=== PATIENT | female | born 1940 | race Caucasian/White ===

== ENCOUNTER → 2017-10-01 11:14 | Outpatient (CLI) | payer OTHER, SELFPAY ==
--- NOTE | 2017-10-01 | DI.MG.S_ITS ---
BILATERAL DIGITAL SCREENING MAMMOGRAM 3D/2D WITH CAD: 10/01/2017 CLINICAL: Routine screening. Family history of breast cancer. Comparison is made to exams dated: 08/14/2016 mammogram, 07/06/2015 mammogram, and 04/26/2014 mammogram - [facility]. There are scattered fibroglandular elements in both breasts. Current study was also evaluated with a Computer Aided Detection (CAD) system. There are benign vascular calcifications in both breasts. No significant masses, calcifications, or other findings are seen in either breast. There has been no significant interval change. IMPRESSION: BENIGN There is no mammographic evidence of malignancy. A 1 year screening mammogram is recommended. This exam was interpreted at Station ID: [id number]. NOTE: For mammograms, a report in lay terms will be sent to the patient. Approximately 15% of breast malignancies will not be visualized mammographically. In the management of a palpable breast mass, a negative mammogram must not discourage biopsy of a clinically suspicious lesion. Electronically Signed By: Cuong man/zach:10/01/2017 12:02:10 letter sent: Normal Exam ACR BI-RADS Category 2: Benign Finding(s) 3342F
== END ==
PROVIDERS: Visit Provider Internal Medicine
DX: Z12.31 Encounter for screening mammogram for malignant neoplasm of breast (principal); Z80.3 Family history of malignant neoplasm of breast
CPT/HCPCS: 77063; 77067

== ENCOUNTER → 2018-04-24 11:54 | Outpatient (CLI) | payer OTHER, SELFPAY ==
[2018-04-24 12:33] LABS: Blood Urea Nitrogen 14 mg/dL (7-17); Calcium 9.6 mg/dL (8.4-10.2); Carbon Dioxide 28 mmol/L (22-32); Chloride 101 mmol/L (98-107); Estimated Glomerular Filt Rate > 60.0 mL/min (>60); Glucose 75 mg/dL (80-110); HEMOLYSIS < 15 (0-50); Potassium 4.8 mmol/L (3.4-5.1); Sodium 139 mmol/L (137-145)
[2018-04-24 14:45] LABS: Free T4, Direct Thyroxine 0.99 ng/dL (0.78-2.19)
[2018-04-24 14:58] LABS: Thyroid Stimulating Hormone 3.63 uIU/mL (0.47-4.68)
== END ==
PROVIDERS: PCP Internal Medicine; Visit Provider Internal Medicine
DX: E04.1 Nontoxic single thyroid nodule (principal); I49.9 Cardiac arrhythmia, unspecified
CPT/HCPCS: 36415; 80048; 84439; 84443

== ENCOUNTER → 2018-10-31 10:43 | Outpatient (CLI) | payer OTHER, SELFPAY ==
--- NOTE | 2018-10-31 | DI.MG.S_ITS ---
BILATERAL DIGITAL SCREENING MAMMOGRAM 3D/2D WITH CAD: 10/31/2018 CLINICAL: Routine screening. Family history of breast cancer. Comparison is made to exams dated: 10/01/2017 mammogram, 08/14/2016 mammogram, and 07/06/2015 mammogram - [facility]. There are scattered fibroglandular elements in both breasts. Current study was also evaluated with a Computer Aided Detection (CAD) system. There is an irregular asymmetry in the left breast middle depth medial region seen on the craniocaudal view only. No other significant masses, calcifications, or other findings are seen in either breast. IMPRESSION: INCOMPLETE: NEEDS ADDITIONAL IMAGING EVALUATION The irregular asymmetry in the left breast is indeterminate. Additional views with possible ultrasound are recommended. This exam was interpreted at Station ID: [id number]. NOTE: For mammograms, a report in lay terms will be sent to the patient. Approximately 15% of breast malignancies will not be visualized mammographically. In the management of a palpable breast mass, a negative mammogram must not discourage biopsy of a clinically suspicious lesion. Electronically Signed By: Kimberly fitzgerald/zach:11/02/2018 09:50:22 letter sent: Additional Imaging Needed ACR BI-RADS Category 0: Incomplete 3340F
== END ==
PROVIDERS: PCP Internal Medicine; Visit Provider Internal Medicine
DX: Z12.31 Encounter for screening mammogram for malignant neoplasm of breast (principal); Z80.3 Family history of malignant neoplasm of breast
CPT/HCPCS: 77063; 77067

== ENCOUNTER → 2018-11-20 08:44 | Outpatient (CLI) | payer OTHER, SELFPAY ==
--- NOTE | 2018-11-20 08:45 | DI.MG.S_ITS ---
UNILATERAL LEFT DIGITAL DIAGNOSTIC MAMMOGRAM 3D/2D WITH ADDITIONAL VIEWS: 11/20/2018 CLINICAL: Additional evaluation requested from prior study. Comparison is made to exams dated: 10/31/2018 mammogram and 10/01/2017 mammogram - [facility]. There are scattered fibroglandular elements in left breast. Previously noted irregular asymmetry in the left breast middle depth medial region seen on the craniocaudal view only on comparison screening mammogram of 10/31/18 persists on additional views. IMPRESSION: INCOMPLETE: NEEDS ADDITIONAL IMAGING EVALUATION Previously noted irregular asymmetry in the left breast middle depth medial region seen on the craniocaudal view only on comparison screening mammogram of 10/31/18 persists on additional views. A targeted ultrasound is recommended and will be performed immediately following this exam. This exam was interpreted at Station ID: [id number]. NOTE: For mammograms, a report in lay terms will be sent to the patient. Approximately 15% of breast malignancies will not be visualized mammographically. In the management of a palpable breast mass, a negative mammogram must not discourage biopsy of a clinically suspicious lesion. Electronically Signed By: Cuong Martin M.D. ecl/:11/20/2018 12:56:22 ACR BI-RADS Category 0: Incomplete 3340F
--- NOTE | 2018-11-20 08:45 | DI.US.S_ITS ---
LIMITED ULTRASOUND OF LEFT BREAST: 11/20/2018 CLINICAL: Patient returns today to evaluate an asymmetry in the left breast. Comparison is made to exams dated: 11/20/2018 mammogram, 10/31/2018 mammogram, 10/01/2017 mammogram, 08/14/2016 mammogram, 07/06/2015 mammogram, and 04/26/2014 mammogram - [facility]. Color flow and real-time ultrasound of the left breast inner aspect were performed. Mane scale images of the real-time examination were reviewed. There is a punctate calcification in the left breast at 9:00 position 5 cm from the nipple. There is a 0.4 x 0.3 cm hypoechoic area posterior to the calcification favors represent shadowing artifact rather than a hypoechoic lesion. Doppler imaging demonstrates twinkle artifact consistent with a calcification, with no suspicious vascularity identified. No other masses or abnormalities are identified in the imaged areas of concern. IMPRESSION: PROBABLY BENIGN Punctate calcification in the left breast at 9:00 position 5 cm from the nipple with 0.4 x 0.3 cm hypoechoic area posterior to the calcification favored to represent shadowing artifact rather than a hypoechoic lesion. No other masses or abnormalities are identified in the imaged areas of concern. A follow-up mammogram with possible ultrasound in 6 months is recommended to demonstrate stability. The patient is advised to monitor her breasts and to return sooner for re-evaluation should she feel anything grow or change. This exam was interpreted at Station ID: [id number]. Electronically Signed By: Cuong Martin M.D. ecl/:11/20/2018 12:59:13 letter sent: Followup Recommended Ultrasound BI-RADS: 3 Probably benign
== END ==
PROVIDERS: PCP Internal Medicine; Visit Provider Internal Medicine
DX: R92.8 Other abnormal and inconclusive findings on diagnostic imaging of breast (principal); R92.1 Mammographic calcification found on diagnostic imaging of breast
CPT/HCPCS: 76642; 77065; G0279

== ENCOUNTER 2019-01-28 12:26 | Day surgery (SDC) | payer OTHER, SELFPAY ==
[2019-01-28 12:38] VITALS: BP 136/87; PULSE 110; RESP 16; TEMP 36.2; O2SAT 100; BMI 25.2
[2019-01-28] MEDS: SODIUM CHLORIDE 0.9% 1,000 ML 21 ML IV (13:03)
--- NOTE | 2019-01-28 13:28 | PM.HP.1 ---
History of Present Illness History of Present Illness Date Patient Seen: 01/28/19 Time Patient Seen: 13:28 Chief complaint: [id number] Narrative: Patient presents for colorectal screening. There previous colonoscopy 5 years ago significant for an adenomatous polyp.. No personal history of colon cancer her father developed colon cancer at the age of 55. On further history denies any recent gastrointestinal symptoms. No nausea, vomiting, abdominal pain, loss of appetite, unexplained weight loss, change in bowel habits, diarrhea, constipation, melena, hematochezia, or bright red blood per rectum. Patient History Medical History Cardiac dysrhythmia, unspecified (Chronic) Chicken pox (Resolved 1945) Family hx of colon cancer (Chronic 08/21/11) Fractures (Resolved 1994) H/O adenomatous polyp of colon (Chronic) Hyperlipidemia, unspecified (Chronic) Measles (Resolved 1942) Menopause (Chronic) Mitral valve prolapse (Chronic) Mumps (Resolved 1952) Osteoporosis, unspecified (Chronic) Rosacea (Chronic) Rubella (Resolved 1964) Sleep disturbance, unspecified (Chronic) Thyroid nodule (Chronic) Surgical History Anesthesia (Resolved) Status post colonoscopy (Resolved) Family & Social History Family History Father Colorectal cancer Pneumonia Mother Diabetes mellitus Hyperlipidemia Hypertension Brother Hypertension Social History: household members spouse Tobacco & Substance use: Smoking Status Never smoker Meds Home Medications and Allergies Home Medications Medication Instructions Recorded Confirmed Type CHOLECALCIFEROL (VITAMIN D) 2,000 iu PO Q DAY #0 06/14/11 01/04/19 History ASCORBIC ACID (VITAMIN C) 1,000 mg PO QDAY #0 07/12/11 01/28/19 History ASPIRIN (Aspirin EC) 81 mg PO QDAY #0 07/12/11 01/28/19 History [CALCIUM] 1,000 mg PO QDAY #0 07/12/11 01/28/19 History Allergies Allergy/AdvReac Type Severity Reaction Status Date / Time Penicillins [PENICILLINS] Allergy Unknown Verified 01/04/19 16:21 Review of Systems Review of Systems Narrative: A complete review of systems is negative except as noted in the HPI Exam Vital Signs (past 8 hours): - 01/28/19 12:38 Temperature 97.1 F L Pulse Rate 110 H Respiratory Rate 16 Blood Pressure 136/87 Pulse Oximetry 100 Oxygen Delivery Method Room Air Narrative Exam Narrative: General-no acute distress, well nourished HEENT-moist mucous membranes, no scleral icterus Neck-supple, no lymphadenopathy Chest- non labored respirations, clear to auscultation bilaterally Cardiac-regular rate no peripheral edema Abdomen-soft, nontender, non distended Extremities-warm, well perfused Neurological-alert and oriented, no focal deficits Assessment & Plan Assessment & Plan narrative: The patient requires colorectal screening and colonoscopy is recommended. Technical details were discussed. Risks, benefits, alternatives explained. Risks including but not limited to myocardial infarction, aspiration, bleeding, pain, missed lesion, incomplete examination, need for further radiographic studies, colonic perforation, and need for major abdominal surgery were discussed. All questions were answered to their satisfaction, and they are in agreement with this plan.
--- NOTE | 2019-01-28 14:07 | PM.OP.ENDO ---
Operative Date/Time/Diagnoses Date of procedure: 01/28/19 Time of procedure: 14:07 Pre-op diagnosis: Family history of colon cancer, prior adenomatous polyp Post-op diagnosis: same Procedure & Clinicians Study performed: Colonoscopy Same procedure as scheduled: Yes Indications: 78-year-old female last colonoscopy 5 years ago demonstrated a adenomatous polyps and has a first-degree relative with colon cancer presents for routine screening. Surgeon: Pancho Hoyos Procedure Notes SCOAP/Timeout: Performed Procedure in detail: Patient placed in left lateral decubitus position. Time out was performed. Procedural sedation was administered with Versed and Fentanyl. A rectal exam demonstrated no external hemorrhoids no internal masses. Colonoscopy scope was placed into the rectum and advanced through the colon to the cecum. The ileocecal valve was identified. The scope was then slowly withdrawn examining colon thoroughly in all directions. The colonoscopy was notable for the following 1. Salcedo diverticulosis 2. No masses polyps 3. Quality of prep fair Scope withdrawal time: 6 Sedation minutes: 30 Findings: diverticulosis Specimen(s): none sent Complications: none Impression: Diverticulosis Post-procedure Recommendations: Colonscopy in 5 years Disposition: same day surgery
[2019-01-28] MEDS: MIDAZOLAM 5 MG/5 ML VIAL IV (14:09)
[2019-01-28] MEDS: fentaNYL 250 MCG/5 ML INJ IV (14:10)
[2019-01-28 14:11] VITALS: BP 113/62; PULSE 82; RESP 14; TEMP 36.3; O2SAT 97
[2019-01-28 14:17] VITALS: BP 100/59; PULSE 86; RESP 16; O2SAT 97
[2019-01-28 14:21] VITALS: BP 111/68; PULSE 80; RESP 14; O2SAT 96
[2019-01-28 14:27] VITALS: BP 111/68; PULSE 80; RESP 16; TEMP 36.2; O2SAT 98
[2019-01-28 14:48] VITALS: BP 118/85; PULSE 82; RESP 12; TEMP 36; O2SAT 100
== END 2019-01-28 15:26 | disposition home or self-care (01) ==
PROVIDERS: PCP Internal Medicine; Visit Provider Surgery
PROC: 0DJD8ZZ Inspection of Lower Intestinal Tract, Via Natural or Artificial Opening Endoscopic (ICD-10-PCS; CPT 45378; principal; 2019-01-28 13:45)
DX: Z12.11 Encounter for screening for malignant neoplasm of colon (principal); Z86.010 Personal history of colon polyps; Z80.0 Family history of malignant neoplasm of digestive organs; K57.30 Diverticulosis of large intestine without perforation or abscess without bleeding
CPT/HCPCS: G0105; 99152; 99153; J2250; J3010

== ENCOUNTER → 2019-06-07 11:06 | Outpatient (CLI) | payer MEDICARE, SELFPAY ==
--- NOTE | 2019-06-07 11:13 | DI.MG.S_ITS ---
UNILATERAL LEFT DIGITAL DIAGNOSTIC MAMMOGRAM 3D/2D SHORT-TERM FOLLOW-UP: 06/07/2019 CLINICAL: Patient returns for a 6 month follow up of the left breast. Comparison is made to exams dated: 11/20/2018 mammogram, 10/31/2018 mammogram, and 10/01/2017 mammogram - [facility]. There are scattered fibroglandular elements in left breast. Previously described irregular asymmetry in the left breast middle depth medial region seen on the craniocaudal view only continues to appear much less prominent and decreased in size. No other significant masses or calcifications are seen in the breast. IMPRESSION: INCOMPLETE: NEEDS ADDITIONAL IMAGING EVALUATION The irregular asymmetry in the left breast is much less conspicuous, but remains indeterminate. An ultrasound is recommended. This exam was interpreted at Station ID: [id number]. NOTE: For mammograms, a report in lay terms will be sent to the patient. Approximately 15% of breast malignancies will not be visualized mammographically. In the management of a palpable breast mass, a negative mammogram must not discourage biopsy of a clinically suspicious lesion. Electronically Signed By: Talib Lopez M.D. aty/:06/07/2019 13:43:10 ACR BI-RADS Category 0: Incomplete 3340F
--- NOTE | 2019-06-07 11:13 | DI.US.S_ITS ---
ULTRASOUND OF LEFT BREAST: 06/07/2019 CLINICAL: 6 month follow-up calc shadow vs shadowing mass. Comparison is made to exams dated: 06/07/2019 mammogram, 11/20/2018 ultrasound, 11/20/2018 mammogram, 10/31/2018 mammogram, and 10/01/2017 mammogram - [facility]. Color flow and real-time ultrasound of the left breast were performed. Mane scale images of the real-time examination were reviewed. Redemonstration of a focus of coarse calcifications in the left breast 9:00, 5cm from the nipple that again likely correlates with dystrophic calcifications seen on comparison mammogram. No solid or vascular component. Twinkle artifact as before. No new sonographic abnormalities. IMPRESSION: PROBABLY BENIGN Stable sonographic appearance of coarse/dystrophic calcification in the left breast 9:00 position, 5cm from the nipple with small posterior hypoechoic area. This is again favored to represent shadowing artifact versus a hypoechoic mass. A follow-up bilateral mammogram and a left breast ultrasound in 6 months is recommended to demonstrate continued stability. This exam was interpreted at Station ID: [id number]. Electronically Signed By: Talib Lopez M.D. aty/:06/07/2019 13:51:55 letter sent: Followup Recommended Ultrasound BI-RADS: 3 Probably benign
== END ==
PROVIDERS: PCP Internal Medicine; Referring Provider Internal Medicine; Visit Provider Internal Medicine
DX: R92.8 Other abnormal and inconclusive findings on diagnostic imaging of breast (principal); R92.1 Mammographic calcification found on diagnostic imaging of breast
CPT/HCPCS: 76642; 77065; G0279

== ENCOUNTER → 2019-12-09 12:36 | Outpatient (CLI) | payer MEDICARE, SELFPAY ==
--- NOTE | 2019-12-09 12:36 | DI.US.S_ITS ---
LIMITED ULTRASOUND OF LEFT BREAST: 12/09/2019 CLINICAL: 6 month follow-up of calcification. Comparison is made to exams dated: 12/09/2019 mammogram, 06/07/2019 ultrasound, 06/07/2019 mammogram, 11/20/2018 ultrasound, 11/20/2018 mammogram, and 10/31/2018 mammogram - [facility]. Color flow ultrasound of the left breast was performed. Mane scale images of the real-time examination were reviewed. Redemonstration of a focus of coarse calcification in the left breast 9:00, 5cm from the nipple that again likely correlates with a dystrophic calcification seen on comparison mammogram. No solid or vascular component. Twinkle artifact as before. No new sonographic abnormalities. IMPRESSION: PROBABLY BENIGN A follow-up left mammogram and an ultrasound in 6 months is recommended to demonstrate stability. This exam was interpreted at Station ID: [id number]. Electronically Signed By: Ace zabala/zach:12/09/2019 14:23:23 letter sent: Followup Recommended Ultrasound BI-RADS: 3 Probably benign
--- NOTE | 2019-12-09 12:36 | DI.MG.S_ITS ---
BILATERAL DIGITAL DIAGNOSTIC MAMMOGRAM 3D/2D SHORT-TERM FOLLOW-UP: 12/09/2019 CLINICAL: Patient returns for a 6 month follow up of the left breast, due for bilateral exam. Comparison is made to exams dated: 06/07/2019 mammogram, 11/20/2018 mammogram, 10/31/2018 mammogram, 11/20/2018 ultrasound, and 10/01/2017 mammogram - [facility]. There are scattered fibroglandular elements in both breasts. There is an irregular asymmetry in the left breast middle depth medial region seen on the craniocaudal view only. This is not significantly changed. No other significant masses, calcifications, or other findings are seen in either breast. There has been no significant interval change. IMPRESSION: INCOMPLETE: NEEDS ADDITIONAL IMAGING EVALUATION The irregular asymmetry in the left breast is indeterminate. An ultrasound is recommended. This exam was interpreted at Station ID: [id number]. NOTE: For mammograms, a report in lay terms will be sent to the patient. Approximately 15% of breast malignancies will not be visualized mammographically. In the management of a palpable breast mass, a negative mammogram must not discourage biopsy of a clinically suspicious lesion. SUMMARY: Targeted ultrasound is recommended for further evaluation and will be scheduled immediately following this exam. Electronically Signed By: Ace zabala/zach:12/09/2019 14:15:21 ACR BI-RADS Category 0: Incomplete 3340F
== END ==
PROVIDERS: PCP Internal Medicine; Referring Provider Internal Medicine; Visit Provider Internal Medicine
DX: R92.8 Other abnormal and inconclusive findings on diagnostic imaging of breast (principal); R92.1 Mammographic calcification found on diagnostic imaging of breast
CPT/HCPCS: 76642; 77066; G0279

== ENCOUNTER → 2020-05-19 14:52 | Outpatient (CLI) | payer MEDICARE, SELFPAY ==
--- NOTE | 2020-05-19 14:54 | DI.US.S_ITS ---
LIMITED ULTRASOUND OF LEFT BREAST: 05/19/2020 CLINICAL: Patient returns today to evaluate a focal asymmetry in the left breast. Comparison is made to exams dated: 05/19/2020 mammogram, 12/09/2019 ultrasound, 12/09/2019 mammogram, 06/07/2019 ultrasound, 06/07/2019 mammogram, and 11/20/2018 [facility]. Color flow ultrasound of the left breast was performed. Mane scale images of the real-time examination were reviewed. Redemonstration of a focus of coarse calcification in the left breast at the 9 o'clock position 5 cm from the nipple that again likely correlates with a dystrophic calcification seen on comparison mammogram. No solid or vascular component. No new sonographic abnormalities. IMPRESSION: PROBABLY BENIGN A follow-up mammogram and an ultrasound in 6 months is recommended to demonstrate stability. This exam was interpreted at Station ID: [id number]. Electronically Signed By: Ace zabala/zach:05/19/2020 16:26:46 letter sent: Followup Recommended Ultrasound BI-RADS: 3 Probably benign
--- NOTE | 2020-05-19 14:54 | DI.MG.S_ITS ---
UNILATERAL LEFT DIGITAL DIAGNOSTIC MAMMOGRAM 3D/2D SHORT-TERM FOLLOW-UP: 05/19/2020 CLINICAL: Short term follow up for the left breast. Comparison is made to exams dated: 12/09/2019 mammogram, 06/07/2019 mammogram, 11/20/2018 mammogram, and 12/09/2019 [facility]. There are scattered fibroglandular elements in left breast. There is an irregular asymmetry in the left breast middle depth medial region seen on the craniocaudal view only. This is less prominent. No other significant masses or calcifications are seen in the breast. IMPRESSION: INCOMPLETE: NEEDS ADDITIONAL IMAGING EVALUATION The irregular asymmetry in the left breast is indeterminate. An ultrasound is recommended. This exam was interpreted at Station ID: [id number]. NOTE: For mammograms, a report in lay terms will be sent to the patient. Approximately 15% of breast malignancies will not be visualized mammographically. In the management of a palpable breast mass, a negative mammogram must not discourage biopsy of a clinically suspicious lesion. Electronically Signed By: Ace zabala/zach:05/19/2020 16:24:43 ACR BI-RADS Category 0: Incomplete 3340F
== END ==
PROVIDERS: PCP Internal Medicine; Referring Provider Internal Medicine; Visit Provider Internal Medicine
DX: R92.8 Other abnormal and inconclusive findings on diagnostic imaging of breast (principal)
CPT/HCPCS: 76642; 77065; G0279

== ENCOUNTER → 2020-06-19 16:20 | Outpatient (CLI) | payer MEDICARE, SELFPAY ==
[2020-06-19 17:29] LABS: Hemoglobin 13.6 g/dL (12.0-16.0); Mean Corpuscular HGB Conc 33.1 % (30-36); Mean Corpuscular Hemoglobin 29.6 PG (26-34); Mean Corpuscular Volume 89.4 fL (80-100); Platelet Count 247 X10^3/uL (150-400); Red Blood Cell Count 4.58 X10^6/uL (4.0-5.2); Red Cell Distribution Width 13.1 % (11.6-14.8); White Blood Cell Count 7.5 X10^3/uL (4.5-11.0)
[2020-06-19 17:38] LABS: Alanine Aminotransferase 16 IU/L (<35); Albumin 4.3 g/dL (3.5-5.0); Albumin Globulin Ratio 1.3 (1.0-2.8); Alkaline Phosphatase 118 U/L (38-126); Aspartate Aminotransferase 36 IU/L (14-36); BUN Creatinine Ratio 25.8 (6-22); Bilirubin Total 0.2 mg/dL (0.2-1.3); Blood Urea Nitrogen 17 mg/dL (7-17); Calcium 9.5 mg/dL (8.4-10.2); Carbon Dioxide 25 mmol/L (22-32); Chloride 103 mmol/L (98-107); Estimated Glomerular Filt Rate > 60.0 mL/min (>60); Globulin 3.4 g/dL (1.7-4.1); Glucose 97 mg/dL (80-110); HEMOLYSIS < 15 (0-50); Potassium 4.4 mmol/L (3.4-5.1); Sodium 136 mmol/L (137-145); Total Protein 7.7 g/dL (6.3-8.2)
[2020-06-19 18:13] LABS: Free T4, Direct Thyroxine 1.11 ng/dL (0.78-2.19)
[2020-06-19 19:10] LABS: Thyroid Stimulating Hormone 4.32 uIU/mL (0.47-4.68)
== END ==
PROVIDERS: PCP Internal Medicine; Referring Provider Internal Medicine; Visit Provider Internal Medicine
DX: E04.1 Nontoxic single thyroid nodule (principal); E78.5 Hyperlipidemia, unspecified; I49.9 Cardiac arrhythmia, unspecified; R06.00 Dyspnea, unspecified
CPT/HCPCS: 36415; 80053; 84439; 84443; 85027

== ENCOUNTER → 2020-11-09 13:31 | Outpatient (CLI) | payer MEDICARE, SELFPAY ==
--- NOTE | 2020-11-09 13:34 | DI.MG.S_ITS ---
BILATERAL DIGITAL DIAGNOSTIC MAMMOGRAM 3D/2D: 11/09/2020 CLINICAL: Patient returns today to evaluate a focal asymmetry in the left breast. Comparison is made to exams dated: 05/19/2020 ultrasound, 05/19/2020 mammogram, 12/09/2019 mammogram, and 06/07/2019 mammogram - [facility]. There are scattered fibroglandular elements in both breasts. The benign asymmetry in the left breast middle depth medial region seen on the craniocaudal view only is no longer seen. No other significant masses, calcifications, or other findings are seen in either breast. IMPRESSION: BENIGN There is no mammographic evidence of malignancy. Return to annual mammogram screening schedule is recommended. This exam was interpreted at Station ID: [id number]. NOTE: For mammograms, a report in lay terms will be sent to the patient. Approximately 15% of breast malignancies will not be visualized mammographically. In the management of a palpable breast mass, a negative mammogram must not discourage biopsy of a clinically suspicious lesion. Electronically Signed By: Monty Hilario acr/:11/09/2020 13:59:52 letter sent: Normal Exam ACR BI-RADS Category 2: Benign Finding(s) 3342F
== END ==
PROVIDERS: PCP Internal Medicine; Referring Provider Internal Medicine; Visit Provider Internal Medicine
DX: R92.8 Other abnormal and inconclusive findings on diagnostic imaging of breast (principal); N64.89 Other specified disorders of breast
CPT/HCPCS: 77066; G0279

== ENCOUNTER → 2021-11-15 14:38 | Outpatient (CLI) | payer MEDICARE, SELFPAY ==
--- NOTE | 2021-11-15 | DI.MG.S_ITS ---
BILATERAL DIGITAL SCREENING MAMMOGRAM 3D/2D WITH CAD: 11/15/2021 CLINICAL: Routine screening. Comparison is made to exams dated: 11/09/2020 mammogram, 12/09/2019 mammogram, 10/31/2018 mammogram, 05/19/2020 ultrasound, and 05/19/2020 mammogram - [facility]. There are scattered areas of fibroglandular density in both breasts (category b / 25%-50% glandular tissue). Current study was also evaluated with a Computer Aided Detection (CAD) system. No significant masses, calcifications, or other findings are seen in either breast. There has been no significant interval change. IMPRESSION: NEGATIVE There is no mammographic evidence of malignancy. A 1 year screening mammogram is recommended. Based on the Tyrer Cuzick model (a risk assessment model) the patient's lifetime risk is 0.9% and her 10 year risk is 0.0%. According to the ACR, ACS, and NCCN guidelines, an annual breast MRI exam along with mammogram is recommended if the patient's lifetime risk is 20% or greater. This exam was interpreted at Station ID: [id number]. NOTE: For mammograms, a report in lay terms will be sent to the patient. Approximately 15% of breast malignancies will not be visualized mammographically. In the management of a palpable breast mass, a negative mammogram must not discourage biopsy of a clinically suspicious lesion. Electronically Signed By: Mani barcenas/zach:11/15/2021 15:26:32 letter sent: Normal Exam ACR BI-RADS Category 1: Negative 3341F
== END ==
PROVIDERS: PCP Internal Medicine; Referring Provider Internal Medicine; Visit Provider Internal Medicine
DX: Z12.31 Encounter for screening mammogram for malignant neoplasm of breast (principal)
CPT/HCPCS: 77063; 77067

== ENCOUNTER → 2022-12-19 15:26 | Outpatient (CLI) | payer MEDICARE, SELFPAY ==
--- NOTE | 2022-12-19 | DI.MG.S_ITS ---
BILATERAL DIGITAL SCREENING MAMMOGRAM 3D/2D WITH CAD: 12/19/2022 CLINICAL: Routine screening. Family history of breast cancer. Comparison is made to exams dated: 11/15/2021 mammogram, 11/09/2020 mammogram, 05/19/2020 mammogram, and 12/09/2019 mammogram - [facility]. There are scattered areas of fibroglandular density in both breasts (category b / 25%-50% glandular tissue). Current study was also evaluated with a Computer Aided Detection (CAD) system. No significant masses, calcifications, or other findings are seen in either breast. There has been no significant interval change. IMPRESSION: NEGATIVE There is no mammographic evidence of malignancy. A 1 year screening mammogram is recommended. Based on the Tyrer Cuzick model (a risk assessment model) the patient's lifetime risk is 0.7% and her 10 year risk is 0.0%. According to the ACR, ACS, and NCCN guidelines, an annual breast MRI exam along with mammogram is recommended if the patient's lifetime risk is 20% or greater. This exam was interpreted at Station ID: [id number]. NOTE: For mammograms, a report in lay terms will be sent to the patient. Approximately 15% of breast malignancies will not be visualized mammographically. In the management of a palpable breast mass, a negative mammogram must not discourage biopsy of a clinically suspicious lesion. Electronically Signed By: Mani barcenas/zach:12/20/2022 08:38:11 letter sent: Normal Exam ACR BI-RADS Category 1: Negative 3341F
[2023-07-10 19:58] LABS: Appearance Urine UA CLOUDY; Bilirubin Urine UA NEGATIVE (NEGATIVE); Color Urine UA RED; Glucose Urine UA NEGATIVE (Negative); Ketones Urine UA NEGATIVE (NEGATIVE); Leukocyte Esterase Urine UA TRACE (NEGATIVE); Nitrite Urine UA NEGATIVE (Negative); Occult Blood Urine UA 3+ (Negative); Protein Urine UA 3+ (Negative); Specific Gravity Urine UA 1.025 (1.000-1.035); Urobilinogen Urine UA 0.2 E.U./dL (0.2)
[2023-07-10 19:59] LABS: Bacteria Urine Few (2-10); Calcium Oxalate Crystals Urine Few; Culture Indicated Urine Specimen Cultured; RBC Urine >100/HPF (0-5/HPF); Squamous Epithelial Cell Urine None Seen (0-5/HPF); Urine Volume 10mL (spun); WBC Urine 1-5/HPF (0-5/HPF)
== END ==
PROVIDERS: Physician Assistant; PCP Internal Medicine; Referring Provider Internal Medicine; Visit Provider Internal Medicine
DX: Z12.31 Encounter for screening mammogram for malignant neoplasm of breast (principal); Z80.3 Family history of malignant neoplasm of breast
CPT/HCPCS: 77063; 77067; 81001; 87086

== ENCOUNTER → 2023-07-15 14:11 | Outpatient (CLI) | payer MEDICARE, SELFPAY ==
[2023-07-15 15:02] LABS: Appearance Urine UA CLEAR; Bilirubin Urine UA NEGATIVE (NEGATIVE); Color Urine UA YELLOW; Glucose Urine UA NEGATIVE (Negative); Ketones Urine UA NEGATIVE (NEGATIVE); Leukocyte Esterase Urine UA 1+ (NEGATIVE); Nitrite Urine UA NEGATIVE (Negative); Occult Blood Urine UA 3+ (Negative); Protein Urine UA 2+ (Negative); Urobilinogen Urine UA 0.2 E.U./dL (0.2)
[2023-07-15 15:03] LABS: pH Urine UA 6.5 (4.5-8.0)
[2023-07-15 15:17] LABS: Bacteria Urine Occasional (0-1); Culture Indicated Urine Specimen Cultured; RBC Urine 30-100/HPF (0-5/HPF); Urine Volume 10mL (spun); WBC Urine 5-10/HPF (0-5/HPF); White Blood Cell Casts Urine 0-1/LPF
[2023-07-15 21:14] LABS: Squamous Epithelial Cell Urine None Seen (0-5/HPF)
== END ==
PROVIDERS: PCP Internal Medicine; Referring Provider Internal Medicine; Visit Provider Internal Medicine
DX: N39.0 Urinary tract infection, site not specified (principal); R31.9 Hematuria, unspecified; R30.0 Dysuria
CPT/HCPCS: 81001; 87086

== ENCOUNTER → 2023-07-17 14:46 | Outpatient (CLI) | payer MEDICARE, SELFPAY ==
[2023-07-17 16:05] LABS: Add Manual Diff / Slide Review NO; Basophils Absolute Auto 100 /uL (0-100); Basophils Percent Auto 1.5 % (0-2); Eosinophils Absolute Auto 200 /uL (0-450); Hemoglobin 13.4 g/dL (12.0-16.0); Lymphocytes Absolute Auto 2400 /uL (1100-4500); Lymphocytes Percent Auto 35.2 % (25-40); Mean Corpuscular HGB Conc 33.4 % (30-36); Mean Corpuscular Hemoglobin 29.8 PG (26-34); Mean Corpuscular Volume 89.4 fL (80-100); Monocytes Absolute Auto 700 /uL (0-900); Monocytes Percent Auto 10.9 % (3-14); Neutrophils Absolute Auto 3400 /uL (1500-7000); Neutrophils Percent Auto 49.4 % (50-75); Platelet Count 254 X10^3/uL (150-400); Red Blood Cell Count 4.48 X10^6/uL (4.0-5.2); Red Cell Distribution Width 13.4 % (11.6-14.8); White Blood Cell Count 6.9 X10^3/uL (4.5-11.0)
[2023-07-17 16:46] LABS: Alanine Aminotransferase 26 IU/L (<35); Albumin 4.5 g/dL (3.5-5.0); Albumin Globulin Ratio 1.4 (1.0-2.8); Alkaline Phosphatase 104 U/L (38-126); Aspartate Aminotransferase 44 IU/L (14-36); BUN Creatinine Ratio 15.3 (6-22); Bilirubin Total 0.4 mg/dL (0.2-1.3); Blood Urea Nitrogen 13 mg/dL (7-17); Calcium 9.5 mg/dL (8.4-10.2); Carbon Dioxide 25 mmol/L (22-32); Chloride 102 mmol/L (98-107); Estimated Glomerular Filt Rate > 60 mL/min (>60); Globulin 3.3 g/dL (1.7-4.1); Glucose 97 mg/dL (80-110); HEMOLYSIS < 15 (0-50); Potassium 4.6 mmol/L (3.4-5.1); Sodium 132 mmol/L (137-145); Total Protein 7.8 g/dL (6.3-8.2)
[2023-07-17 17:20] LABS: Free T4, Direct Thyroxine 1.08 ng/dL (0.78-2.19)
[2023-07-17 17:34] LABS: Thyroid Stimulating Hormone 2.99 uIU/mL (0.47-4.68)
== END ==
PROVIDERS: PCP Internal Medicine; Referring Provider Internal Medicine; Visit Provider Internal Medicine
DX: R31.9 Hematuria, unspecified (principal); I49.9 Cardiac arrhythmia, unspecified; D64.9 Anemia, unspecified; E04.1 Nontoxic single thyroid nodule
CPT/HCPCS: 80053; 84439; 84443; 85025

== ENCOUNTER → 2023-07-29 14:46 | Outpatient (CLI) | payer MEDICARE, SELFPAY ==
--- NOTE | 2023-07-29 16:00 | DI.CT.S_ITS ---
PROCEDURE: CT IVP A/P W/WO INDICATIONS: hematuria TECHNIQUE: Optional 5 mm thick noncontrast images acquired from the diaphragm to the symphysis pubis. After the administration of intravenous contrast, 5 mm thick images acquired from the diaphragm to the symphysis pubis after a 10-minute delay. 2 mm thick coronal and sagittal reformats were then performed of the kidneys and ureters. For radiation dose reduction, the following was used: automated exposure control, adjustment of mA and/or kV according to patient size. COMPARISON: None. FINDINGS: Image quality: Diagnostic. Kidneys and Ureters: Both kidneys are mildly atrophic. There is mild appearance of hydronephrosis with prominent extrarenal pelvis on the right. A stone is present in the pelvis measuring 1 cm, Hounsfield units 813. Opacified portions of both ureters demonstrate normal caliber Bladder: Bladder wall thickness is normal. No calcified bladder stones. OTHER: Lower chest: Mild cardiomegaly. Pectus deformity is present. Liver: No solid mass. Liver is enlarged measuring 18.3 cm. Gallbladder: Luminal stone without wall thickening. Biliary ducts: No biliary dilation. Pancreas: No ductal dilation. Spleen: Size is within normal limits. Adrenal Glands: No adrenal nodules. Stomach and Bowel: Normal colonic caliber, without significant wall thickening. Scattered colonic diverticula are present. Peritoneum: No abnormal intraperitoneal fluid. No free air. Ventral Wall: No hernia. Abdominal Nodes: No retroperitoneal or mesenteric adenopathy by size criteria. Vessels: Aorta and inferior vena cava are normal in size. PELVIS: Pelvic Organs: Unremarkable. Pelvic Nodes: No enlarged lymph nodes. Miscellaneous: No inguinal hernias are seen. Bones: No aggressive osseous abnormality. Leftward scoliotic curvature is present. IMPRESSION: Mild right hydronephrosis with 1 cm stone in the pelvis. Diverticulosis. Dictated by: Debi Lui M.D. on 07/29/2023 at 16:56 Approved by: Debi Lui M.D. on 07/29/2023 at 17:00
== END ==
PROVIDERS: PCP Internal Medicine; Referring Provider Internal Medicine; Visit Provider Internal Medicine
DX: N13.2 Hydronephrosis with renal and ureteral calculous obstruction (principal); R31.9 Hematuria, unspecified; K57.90 Diverticulosis of intestine, part unspecified, without perforation or abscess without bleeding; K80.20 Calculus of gallbladder without cholecystitis without obstruction; R16.0 Hepatomegaly, not elsewhere classified; I49.9 Cardiac arrhythmia, unspecified; D64.9 Anemia, unspecified
CPT/HCPCS: 74178; Q9967

== ENCOUNTER → 2023-12-15 16:06 | Outpatient (CLI) | payer MEDICARE, SELFPAY ==
--- NOTE | 2023-12-15 16:08 | DI.RAD.S_ITS ---
PROCEDURE: XR PELVIS 1-2V INDICATIONS: sacral pain TECHNIQUE: One-view s) of the pelvis acquired. COMPARISON: None. FINDINGS: Bones: There are no osseous abnormalities. SI and hip joints: Normal in width and alignment without arthritic change moderate L4-5 and L5-S1 degenerative disc disease noted Soft tissues: No soft tissue swelling, calcification or mass. IMPRESSION: Normal pelvis . Moderate L4-5 and L5-S1 degenerative disc disease Dictated by: Carl Gillespie M.D. on 12/16/2023 at 10:28 Approved by: Carl Gillespie M.D. on 12/16/2023 at 10:29
== END ==
PROVIDERS: PCP Internal Medicine; Referring Provider Internal Medicine; Visit Provider Internal Medicine
DX: M53.3 Sacrococcygeal disorders, not elsewhere classified (principal); M51.369 Other intervertebral disc degeneration, lumbar region without mention of lumbar back pain or lower extremity pain; M51.379 Other intervertebral disc degeneration, lumbosacral region without mention of lumbar back pain or lower extremity pain
CPT/HCPCS: 72170

== ENCOUNTER → 2024-01-13 14:39 | Outpatient (CLI) | payer MEDICARE, SELFPAY ==
--- NOTE | 2024-01-13 14:39 | DI.MG.S_ITS ---
BILATERAL DIGITAL SCREENING MAMMOGRAM 3D/2D WITH CAD: 01/13/2024 CLINICAL: Routine screening. Family history breast cancer. Comparison is made to exams dated: 12/19/2022 mammogram, 11/15/2021 mammogram, and 11/09/2020 mammogram - [facility]. There are scattered areas of fibroglandular density (category b / 25%-50% glandular tissue). Current study was also evaluated with a Computer Aided Detection (CAD) system. There are benign vascular calcifications in both breasts. No significant masses, calcifications, or other findings are seen in either breast. There has been no significant interval change. IMPRESSION: BENIGN There is no mammographic evidence of malignancy. A 1 year screening mammogram is recommended. Based on the Tyrer Cuzick model (a risk assessment model) the patient's lifetime risk is 0.5% and her 10 year risk is 0.0%. According to the ACR, ACS, and NCCN guidelines, an annual breast MRI exam along with mammogram is recommended if the patient's lifetime risk is 20% or greater. This exam was interpreted at Station ID: [id number]. NOTE: For mammograms, a report in lay terms will be sent to the patient. Approximately 15% of breast malignancies will not be visualized mammographically. In the management of a palpable breast mass, a negative mammogram must not discourage biopsy of a clinically suspicious lesion. Electronically Signed By: Lucas [email or web address]:01/13/2024 16:30:49 letter sent: Normal Exam ACR BI-RADS Category 2: Benign
== END ==
PROVIDERS: PCP Internal Medicine; Referring Provider Internal Medicine; Visit Provider Internal Medicine
DX: Z12.31 Encounter for screening mammogram for malignant neoplasm of breast (principal); Z80.3 Family history of malignant neoplasm of breast
CPT/HCPCS: 77063; 77067